=== PATIENT | female | born 1975 | race Caucasian/White ===

== ENCOUNTER 2016-10-28 16:24 | Observation (INO) | payer MEDICARE, MEDICAID ==
[~2016-10-28] VITALS: Ht 165.1 cm; Wt 84.2 kg
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
--- NOTE | 2016-11-02 11:26 | CO ---
ADMIT: 10/28/2016 RM/LOC: 526 [facility] MR#: [id number] [address] [address] [place] [address] Consultation SEX: F AGE: 41 : 1975 DATE OF CONSULTATION: 10/30/2016 ATTENDING PHYSICIAN: Deon Montgomery CONSULTING PHYSICIAN: Elena Lujan APRN TIME OUT: 1020 hours. TIME-OUT: 110 hours. REASON FOR CONSULTATION: Supportive care consultation was requested by Dr. Grullon for discussion of goals for care. HISTORY OF PRESENT ILLNESS: Mrs. Waters is a 41-year-old, female with the unfortunate history of relapsing-remitting multiple sclerosis. In review of her records, it does appear that she has had some difficulty with medication compliance. She presented to the emergency room on 10/28 with weakness and confusion. Apparently, she was found in her hotel room where she resides, and it was apparent that she was not able to care for herself. She did end up having a UTI which we are treating her for. An MRI was done of the brain that revealed progression of her multiple sclerosis as well as increased ventricle size. There has been a consultation for Neurosurgery to see her. Due to her complexities, supportive care consultation was requested to discuss goals for care and to also support the patient. In terms of advanced directives, the patient states that she has completed a will in the past, however, has not completed a living will or durable power-of- manufacturing teacher for healthcare. Currently, her next of kin decision maker that she has listed as her father Jaquelin Waters whose phone# [phone]. It is of note that she does have an adult child who would actually be her legal next of kin. The patient is a full code at the time of assessment. Symptomatically, the patient denies complaints with the exception of some fatigue and also some muscle spasms. Overall, she does appear debilitated and weak. PAST MEDICAL HISTORY: 1. Relapsing-remitting multiple sclerosis. 2. Fatigue. 3. Muscle spasticity. 4. Neurogenic bladder. 5. Cognitive impairment. 6. Polyneuropathy. 7. B12 deficiency. 8. Vitamin D deficiency. 9. Depression. PAST SURGICAL HISTORY: 1. . ADMIT: 10/28/2016 RM/LOC: 526 [facility] MR#: [id number] [address] [address] [place] [address] Consultation SEX: F AGE: 41 : 1975 2. Knee surgery. 3. Hernioplasty. ALLERGIES: THE PATIENT IS ALLERGIC TO LORTAB AND MORPHINE. CURRENT MEDICATIONS: Please see the patient's MAR for specific routes and dosages. Her current medications are as follows. 1. Maalox. 2. Tylenol. 3. Colace. 4. Levaquin. 5. Lovenox. 6. vitamin. 7. Pristiq. 8. Ditropan. 9. Lioresal. 10.Neurontin. 11.Mycostatin. 12.D5 half-normal saline. 13.Vitamin B12 injections. SOCIAL HISTORY: The patient is not . She has a boyfriend who will be getting out on parole soon. She states that she has an adult child and also 2 younger children who are currently under the care of her [id number] in [place]. She used to be a heavy smoker, but does not smoke any longer. She was living by herself. FAMILY HISTORY: Her father has multiple sclerosis. Her mother of a brain tumor when the patient was very young. FUNCTIONAL REVIEW: Prior to her hospital stay, she states that she was in a wheelchair. She was caring for herself, but it sounds like this was becoming very difficult. She states that her intake was normal. Her palliative performance scale prior to admission was 40% to 50%. Currently, she is in bed. She is requiring total care to mainly assistance. Her intake is normal. She was confused initially upon admission, but is clear during my discussion with her today. Her current palliative performance scale score is a 30% to 40%. REVIEW OF SYSTEMS: A 10-point review of systems was completed and other than those pertinent positives and negatives mentioned the HPI, it is negative. PHYSICAL EXAMINATION: GENERAL: The patient is examined in the bed. She is in no acute distress. VITAL SIGNS: Temperature 98.7, pulse 97, respirations 14, blood pressure 143/93, oxygen 100% on room air. HEENT: Head is normocephalic. Pupils are equal, round, and reactive with a diameter of 3 mm bilaterally. Oral mucosa is pink and moist with fair ADMIT: 10/28/2016 RM/LOC: 526 [facility] MR#: [id number] [address] [place] [id number] NOE WATERS [place] [address] Consultation SEX: F AGE: 41 : 1975 dentition. NECK: Supple. RESPIRATORY: Respirations are equal and nonlabored. LUNGS: Diminished in the bases bilaterally. CARDIOVASCULAR: Rate and rhythm regular without murmurs, rubs, or gallops noted. No edema noted. GASTROINTESTINAL: Soft, nontender. Bowel sounds are positive. MUSCULOSKELETAL: Generalized weakness. She is particularly weak over the bilateral lower extremities. INTEGUMENTARY: Skin turgor is fair. She does have a pressure ulcer on her right lateral malleolus. NEUROLOGIC: Alert and oriented x3. She will follow commands. She does have the weakness as noted from her multiple sclerosis. PSYCHIATRIC: Calm and cooperative. No agitation noted during my assessment. IMPRESSION: 1. Physical debility. 2. Fatigue. 3. Malaise. 4. Difficulty coping. 5. Muscle spasms. 6. Relapsing-remitting multiple sclerosis. 7. Urinary tract infection. 8. Right lateral malleolus pressure ulcer. 9. Encephalopathy which seems to be improving. 10.Palliative care. 11.The patient is a full code. PLAN OF TREATMENT: 1. I was able to meet with the patient at the bedside. As mentioned, she is alert and oriented x3, and able to participate in medical decision making at the time of my assessment. Currently, she has not spoken with Neurology regarding the outcome of her MRI. I will defer to them and Neurosurgery to discuss the MRI findings with the patient. She does recognize that strength metzger she has been declining. She is frustrated and sad and much support was given to her. She does agree that placement is necessary at discharge and is hoping to get placed at [facility] where her father is currently placed for care. She does hope to have some improvement in the time ahead and would ultimately like to be able to care for her children. She understandably is having a hard time with the nature of her illness and much support was given to her. She agrees to ongoing discussions regarding goals pending her status in the time ahead. 2. We did review the patient's code status at length including the burden versus benefit of a full code status versus a do not resuscitate/do not intubate. The patient is very clear and adamant about wanting to be a full code status and states that she wants to be alive for her kids. 3. We did discuss advance directives and she agrees to complete healthcare [id number] as she has not completed this at this point. She ADMIT: 10/28/2016 RM/LOC: 526 [facility] MR#: [id number] [address] [place] [phone] [place] [address] Consultation SEX: F AGE: 41 : 1975 states that she would like her dad to be her primary healthcare power-of- manufacturing teacher and her adult son to be secondary. She states that down the road she will likely make adjustments to this as her boyfriend gets out of [employer] on parole. I did not review the concept of a POLST form during my visit today, however, I will try to approach this with the patient during our next visit as it would certainly be beneficial for her to complete one if she is willing. 4. The patient does have a lot going on in terms of her medical status. She does have a personal counter clerk following her for spiritual support and I emphasized the importance of this in the time ahead. I also encouraged her to reach out to family and friends who are supportive and positive in terms of giving her the support that she needs. Overall, she is appreciative of the consultation and agrees to ongoing discussions. We would like to thank Dr. Grullon for the invitation to participate in this patient's care. Total consultation time was 50 minutes from 1020 hours to 1110 hours with 30 minutes from 1025 hours to 1055 hours spent [id number] with the patient discussing goals for care and providing counseling and support. Elena Lujan APRN/ gama JOB #: [id number] CC: Deon Montgomery, Attending Physician Deon Montgomery, Family Physician
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
[2016-11-03] MEDS ORDERED: DITROPAN XL10 MG PO (07:43)
[2016-11-03] MEDS ORDERED: LIORESAL DPS20 MG PO (07:44)
[2016-11-03] MEDS ORDERED: NEURONTIN DPS400 MG PO (07:44)
[2016-11-03] MEDS ORDERED: PRENATAL VIT1 TAB PO (07:44)
[2016-11-03] MEDS ORDERED: LEVAQUIN DPS500 MG PO (07:44)
[2016-11-03] MEDS ORDERED: AMPYRA10 MG PO (07:45)
[2016-11-03] MEDS ORDERED: PRISTIQ50 MG PO (07:45)
[2016-11-03] MEDS ORDERED: VITAMIN B-1000 MCG/1 SQ ×2 (07:47→07:48)
[2016-11-03] MEDS ORDERED: VITAMIN D-32000 UNI1 PO (07:49)
--- NOTE | 2016-11-09 11:58 | CO ---
ADMIT: 10/28/2016 RM/LOC: 526 [facility] MR#: [id number] [address] [address] [place] [address] Consultation SEX: F AGE: 41 : 1975 DATE OF CONSULTATION: 10/30/2016 ATTENDING PHYSICIAN: Deon Montgomery CONSULTING PHYSICIAN: Tanner Jackson MD REASON FOR CONSULT: Question of hydrocephalus. HISTORY OF PRESENT ILLNESS: The patient is a pleasant 41-year-old woman with multiple sclerosis that has been diagnosed years ago. She has had some cognitive impairment that is worsened recently. She was admitted with UTI and difficulty with self-care. PAST MEDICAL HISTORY: Relapsing remitting multiple sclerosis, paraplegia, neurogenic bladder, polyneuropathy, B12 deficiency, vitamin D deficiency, depression, knee surgery, herniorrhaphy, and . FAMILY HISTORY: Multiple sclerosis in her father. SOCIAL HISTORY: She used to smoke, does not anymore. She does not drink alcohol. REVIEW OF SYSTEMS: Complete review of systems was obtained and pertinent positives included in the HPI. PHYSICAL EXAMINATION: VITAL SIGNS: 97.3, 84 beats, 16 respirations, 121/72, 100% on room air. GENERAL: She is morbidly obese. Relatively unhealthy appearing, 41-year-old woman with an atraumatic head. HEENT: No scleral icterus. Clear oropharynx. LUNGS: Normal respiratory excursion. ABDOMEN: Obese abdomen. NEUROLOGICAL EXAMINATION: MENTAL STATUS: She is awake, alert, and oriented to person and place, but a bit of a bizarre affect and it is difficult to tell if she is confused. She definitely has some tangential discussion. No aphasia noted. Cranial nerves II through XII are individually tested. She has an internuclear ophthalmoplegia with intact facial sensation and facial symmetry. MOTOR EXAMINATION: Full strength in the upper extremities with spasticity and strength about 2/5 in the bilateral lower extremities. She has deep tendon reflexes hyperreflexic with Babinski signs of bilateral lower extremities. She has some hyperreflexia in the upper extremities, 3/4. It is 4/4 in the lower extremities. SENSATION: Intact to light touch in the arms. GAIT: Not testable. CEREBELLAR EXAM: Mild discoordination. ASSESSMENT AND PLAN: Ms. Waters is a very pleasant woman with multiple sclerosis. I reviewed her MRIs with Dr. Allison. I spent an hour with the ADMIT: 10/28/2016 RM/LOC: 526 [facility] MR#: [id number] [address] [address] [place] [address] Consultation SEX: F AGE: 41 : 1975 patient and in formal review of the imaging above and beyond the 15 minute examination with determination that she does have slightly bigger ventricular horns. The apparent size at least in relation to lateral ventricles of the cavum septum pellucidum appears to have slightly diminished, which makes it look a bit like the ventricles have not really changed much in size, but after review and some measurements done in radiology. I think she does. This is likely ventriculomegaly ex vacuo. She at least does not have fluoride hydrocephalic crisis. With the recent infection that certainly can play in to her cognitive issues, I would like to give her time to recuperate from that and evaluate for lumbar puncture or even ambulatory lumbar drainage at a later date after she clear her UTI if there is further consideration for cognitive delay. Tanner Jackson MD/ gama JOB #: [id number] CC: Deon L Husen, Attending Physician Deon Montgomery, Family Physician
--- NOTE | 2016-11-10 10:32 | CO ---
ADMIT: 10/28/2016 RM/LOC: 526 [facility] MR#: [id number] [address] [address] [place] [address] Consultation SEX: F AGE: 41 : 1975 DATE OF CONSULTATION: 10/29/2016 ATTENDING PHYSICIAN: Deon Montgomery CONSULTING PHYSICIAN: Olaf Clark MD REASON FOR CONSULTATION: Multiple sclerosis and confusion. HISTORY OF PRESENT ILLNESS: The patient is a 41-year-old woman with history of relapsing-remitting multiple sclerosis, who is known to me from the clinic and previous admissions, supposed to be on Gilenya as a disease modifying therapy. Her last appointment was in December 2015 with me, she failed to follow. It is of interest that I just received an e-mail from insurance company, recorded the alternate plan for her treatment since she is not on Gilenya. In regard to her clinical situation, she was able to ambulate with a walker up until 10/11/2015, but at the time of the last appointment she also was a wheelchair-bound. Her cognition was mildly impaired secondary to multiple sclerosis. She was slower, but not confused at her baseline. Apparently, the patient was admitted to [facility] for confusion believed to be secondary to UTI and inability of self care. PAST MEDICAL HISTORY: Significant for relapsing-remitting multiple sclerosis with complications paretic to paraplegic. She has also fatigue, muscle spasticity, neurogenic bladder, cognitive impairment, polyneuropathy, B12 deficiency, vitamin D deficiency, and depression. PAST SURGICAL HISTORY: , knee surgery, and hernioplasty. FAMILY HISTORY: Father with multiple sclerosis. SOCIAL HISTORY: She tells me today that she does not smoke anymore, but she used to be a heavy smoker. I am not sure whether she drinks alcohol or not. It is unable to obtain due to her delirium. REVIEW OF SYSTEMS: Unreliable secondary to her delirium. NEURO EXAMINATION: The patient is awake, alert. She is oriented to self and place. Disoriented to date. She talks, but is confused, tangential. Speech is not slurred. Deferred testing of higher cortical function secondary to delirium. Cranial nerves, visual vogel are intact. Pupils are equal and reactive. She has bilateral CHAPARRO. Facial sensation is symmetric. Face is symmetric. Hearing to voice is normal. Uvula midline. Shoulder shrug symmetric. Tongue midline, fairly moveable. Motor examination, full strength in upper extremities with mild spasticity in lower extremities. The strength is 1 to 3/5 severely spastic. She has pronounced hyperreflexia and bilateral Babinski. Coordination with upper extremities only appears to be normal. Gait unable. REVIEW OF LABS: White count is 4.5, lymphocyte count 0.7. UA is positive. ADMIT: 10/28/2016 RM/LOC: 526 [facility] MR#: [id number] [address] [place] [id number] NOE SARAVIA [facility] [place] [address] Consultation SEX: F AGE: 41 : 1975 Cultures pending. Procalcitonin was okay. ASSESSMENT: 1. Relapsing-remitting multiple sclerosis with poor compliance. 2. Delirium on the top of mild bradyphrenia/cognitive changes secondary to multiple sclerosis. 3. Urinary tract infection. PLAN: We will obtain MRI of brain to rule out any active lesions that may be responsible for confusion. We will stop amantadine to reduce anticholinergic effect if not better. Question is whether she should reduce oxybutynin. We will check B12, vitamin D, TSH, and free T4. Further workup per imaging and lab results. Thank you very much for this interesting consult. Olaf Clark MD/ gama JOB #: [id number] CC: Deon Montgomery, Attending Physician Deon Montgomery, Family Physician
--- NOTE | 2016-12-03 12:51 | DS ---
ADMIT: 10/28/2016 RM/LOC: 526 [facility] MR#: [id number] [address] [address] [place] [address] General Discharge Summary SEX: F AGE: 41 : 1975 ADMISSION DATE: 10/28/2016 DISCHARGE DATE: 11/02/2016 ADMITTING DIAGNOSIS: As per history and physical. FINAL DIAGNOSES: 1. Encephalopathy. 2. Multiple sclerosis. 3. Acute delirium, multifactorial. 4. Dehydration. 5. Urinary tract infection. 6. Major depressive disorder. 7. Tobacco use disorder. 8. Bilateral lower extremity paralysis. 9. Severe mobility impairment. 10.Unstageable pressure ulcer, right lateral ankle. COMPLICATIONS: None. OPERATIONS: None. CLINICAL HISTORY: The patient is a 41-year-old white female, [place] patient, who is admitted to [facility] after being found lying on the floor of her hotel room, covered in feces and urine. She is acutely disoriented and confused. The patient is disabled and has difficulty caring for herself and not been seen for several days and so the hotel staff checked on her and found her acutely confused. Obtunded and apparently having been lying on the floor for an extended period of time. She was brought by ambulance to the ER, where she was evaluated and admitted since she is unable to return to any type of other living arrangement. Adult Protective Services got involved and would not allow her to return to her previous living condition. For further details of her clinical history as well as past medical history and pertinent findings on physical exam, please see dictated history and physical. Please also see dictated Neurology consultation, dictated Neurosurgery consultation, and dictated palliative care consultation. LABORATORY AND X-RAY SUMMARY FROM THIS ADMISSION: Her initial CBC showed a white count of 4500, hemoglobin 13.6, hematocrit 39.1 sedimentation rate was 28 on admission. Coag studies were normal. INR was 1.07. Urinalysis on admission was grossly infected with positive nitrites, 2+ leukocyte esterase, 38 wbc's per high-power field. Chemistry studies on admission were unremarkable. BUN was 16. Creatinine was 0.7. Electrolytes were normal. Serum magnesium was normal. Procalcitonin and lactic acid were both normal. Cardiac enzymes were normal. Her vitamin B12 level was low at 220. TSH was normal at 2.55. Vitamin D level was extremely low at 8. Blood culture showed no growth on admission. Urine culture grew out multiple organisms. Blood type is noted to be O negative. Her MRI of her brain shows changes of advanced multiple sclerosis with significant interval increase and changes related to her MS when compared to her last MRI from 2013. X-rays of her ADMIT: 10/28/2016 RM/LOC: 526 [facility] MR#: [id number] [facility] [place] [id number] [place] [address] General Discharge Summary SEX: F AGE: 41 : 1975 ankle showed changes of degenerative arthritis. She has orthopedic hardware in her right tibia due to old fracture. Chest x-ray on admission showed no evidence of pneumonia. HOSPITAL COURSE: The patient was admitted, admitted because of her inability to care for herself. She did have both UTI and was dehydrated on admission. She was extremely weak and debilitated and required a great deal of bathing in the ER before we could admit her to the floor. The patient because of her neurologic deficit due to her MS was unable to care for herself. She was hydrated with IV fluids. Treated for her urinary tract infection. Neurology was consulted. Palliative care consult was also obtained. She was found to have significant vitamin B12 deficiency and vitamin D deficiency and she was placed on vitamin supplementation for those deficiencies. Neurosurgery also saw her in consultation. Ultimately, arrangements were made for her to go to [facility]. The patient was transferred to [facility] on 11/02/2016 with plans for long-term longterm or assisted living facility placement. The patient has significant cognitive impairment due to her advanced multiple sclerosis and is unable to care for herself in an independent living situation. DISCHARGE MEDICATIONS: Medications at dismissal included: 1. Ditropan XL 20 mg daily. 2. Levaquin 500 mg one daily for 2 days for her UTI. 3. Lioresal 30 mg q.i.d. 4. Neurontin 400 mg q.i.d. 5. vitamin one daily. 6. Pristiq 100 mg daily. 7. Ampyra ER 10 mg twice daily. 8. Vitamin B12 at 1000 mcg subcu daily for 7 days, then once weekly. 9. Vitamin D3 at 6000 units daily for 8 weeks, then 2000 units daily. She is to have followup lab work at the longterm in one month to include CBC, BMP, vitamin D level, and vitamin B12 level. She will be seen for followup at the longterm in 5-7 days. CONDITION AT DISCHARGE: Improved. Long-term prognosis thoughis poor in view of the severity of her neurologic disease. Deon Montgomery MD/ gama JOB #: [id number] CC: Deon Montgomery MD, Attending Physician Deon Montgomery MD, Family Physician
== END 2016-11-02 13:45 ==
LOC: ER 16:24 → 5MS 18:30
PROVIDERS: ADMIT Family Medicine
DX: R53.81 Other malaise (principal); G93.40 Encephalopathy, unspecified; G35 Multiple sclerosis; M62.838 Other muscle spasm; R41.0 Disorientation, unspecified; E86.0 Dehydration; N39.0 Urinary tract infection, site not specified; F32.9 Major depressive disorder, single episode, unspecified; F17.210 Nicotine dependence, cigarettes, uncomplicated; Z98.890 Other specified postprocedural states; Z79.899 Other long term (current) drug therapy; Z88.6 Allergy status to analgesic agent; Z88.8 Allergy status to other drugs, medicaments and biological substances

== ENCOUNTER → 2016-12-22 | Outpatient (CLI) | payer MEDICARE, MEDICAID ==
[~2016-12-22] MED LIST: AMPYRA10 MG PO; DITROPAN XL10 MG PO; LEVAQUIN DPS500 MG PO; LIORESAL DPS20 MG PO; NEURONTIN DPS400 MG PO; PRENATAL VIT1 TAB PO; PRISTIQ50 MG PO; VITAMIN B-1000 MCG/1 SQ; VITAMIN D-32000 UNI1 PO
== END | disposition home or self-care (01) ==
LOC: THER.SSS 08:19 → EDSTATUS 08:23
DX: G35 Multiple sclerosis (principal)